=== PATIENT | female | born 1935 | race Caucasian/White ===

== ENCOUNTER 2018-09-14 21:00 | Emergency (ER) | payer MEDICARE ==
[2018-09-14 21:30] VITALS: BP 196/112
[2018-09-14] MEDS ORDERED: diazePAM INJ 5 MG/ML SYRINGE IM STA (22:40)
[2018-09-14] MEDS ORDERED: BUPIVACAINE 0.5%-EPI 1:200000 PF 10 ML VIAL SUBQ STA (22:41)
--- NOTE | 2018-09-14 22:43 | ED Physician Documentation ---
PD HPI BACK PAIN - Stated complaint Stated Complaint: BACK SPASAMS - Chief complaint Chief Complaint: Back Pain - History obtained from History obtained from: Patient - History of Present Illness Timing - onset: Today Timing - duration: Hours (several) Pain level max: 8 Pain level now: 8 Location: Mid, Left Quality: Pain, Spasm Associated symptoms: Other (no hx of IVDA or spinal injections). No: Fever, Weakness, Numbness, Incontinent of urine, Unable to urinate, Hematuria, Incontinent of stool Improves with: Position (lifting her left leg up to stretch) Worsened by: Movement Contributing factors: Other (unknown but has piror history of same symptoms) Similar symptoms before: Treatment (with a shot of something in the ED) Recently seen: Emergency Dept, Other (a few weeks ago for the same) Review of Systems Ten Systems: 10 systems reviewed and negative Constitutional: denies: Fever, Chills, Myalgias GI: denies: Abdominal Pain : denies: Dysuria, Incontinent, Hematuria Skin: denies: Rash, Lesions Musculoskeletal: reports: Back pain. 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 HEENT: Cataracts - Present Medications Home Medications: Ambulatory Orders Medication Instructions Recorded Confirmed RX: Hydrochlorothiazide 25 mg PO DAILY 01/05/13 03/10/15 RX: Potassium 99 mg PO DAILY 01/05/13 03/10/15 Calcium Carbonate [Calcium] 600 mg PO DAILY 03/10/15 03/10/15 Cholecalciferol (Vitamin D3) 1,000 unit PO DAILY 03/10/15 03/10/15 [Vitamin D3] Methocarbamol [Robaxin] 500 mg PO Q6H PRN #20 tablet 03/10/15 RX: diazePAM [Diazepam] 5 mg PO PRN 03/10/15 03/10/15 oxyCODONE/ACET 5/325 [Percocet 5 1 each PO Q4-6H PRN 03/10/15 03/10/15 mg/325 mg] oxyCODONE/ACET 5/325 [Percocet 5 1 each PO Q4-6H PRN #20 tablet 03/10/15 mg/325 mg] - Allergies Allergies/Adverse Reactions: Allergies Allergy/AdvReac Type Severity Reaction Status Date / Time No Known Drug Allergies Allergy Verified 09/14/18 21:07 - Social History Does the pt smoke?: No Smoking Status: Never smoker Does the pt drink ETOH?: Yes Does the pt have substance abuse?: No - Immunizations Immunizations are current?: Yes PD ED PE NORMAL - Vitals Vital signs reviewed: Yes - General General: Alert and oriented X 3, No acute distress - HEENT HEENT: Atraumatic - Neck Neck: Supple, no meningeal sign - Cardiac Cardiac: RRR, No murmur, No gallop, No rub - Respiratory Respiratory: No respiratory distress - Abdomen Abdomen: Soft, Non tender, Non distended - Female Female : Deferred - Rectal Rectal: Deferred - Back Back: No CVA TTP, Other (left mid paraspinal muscle tenderness with deep palpation) - Derm Derm: Normal color, Warm and dry, No rash - Extremities Extremities: No deformity, No tenderness to palpate, Normal ROM s pain. No: No edema, No calf tenderness / cord - Neuro Neuro: Alert and oriented X 3 Eye Opening: Spontaneous Motor: Obeys Commands Verbal: Oriented GCS Score: 15 - Psych Psych: Normal mood, Normal affect Results - Vitals Vitals: Vital Signs - 24 hr 09/14/18 09/14/18 09/14/18 21:04 21:30 23:51 Temperature 36.0 C L Heart Rate 87 86 Respiratory 20 17 17 Rate Blood Pressure 224/105 H 196/112 H O2 Saturation 95 98 Oxygen O2 Source Room air Procedures - General procedure General procedure: Right mid paraspinal trigger point injection performed with 0.5% marcaine with epi, cleansed area with chloraprep. No complications. PD MEDICAL DECISION MAKING - ED course Complexity details: reviewed old records, re-evaluated patient, considered differential, d/w patient ED course: 82 y/o F with hx of mid back pain for weeks, multiple ED visits, c/o spasming in mid back, atraumatic and paraspinal tenderness present in mid back. No red flags for back pain as in documentation.Given analgesics and trigger pt injection. Pt to f/u as needed. Departure - Departure Disposition: 01 Home, Self Care Clinical Impression: Back spasm Condition: Good Record reviewed to determine appropriate education?: Yes Instructions: ED Low Back Pain Injury Follow-Up: your,doctor [Other] - As Needed Comments: Return to the ED if you develop fever, weakness, or inability to walk Discharge Date/Time: 09/14/18 23:52
== END 2018-09-14 23:52 | disposition home or self-care (01) ==
LOC: ED 21:00
DX: M62.830 Muscle spasm of back (principal); M54.9 Dorsalgia, unspecified; I10 Essential (primary) hypertension
CPT/HCPCS: 20552; 96372; 99282; 99283

== ENCOUNTER 2018-09-15 05:55 | Emergency (ER) | payer MEDICARE ==
[2018-09-15] MEDS ORDERED: LIDOCAINE PATCH 5% TOP STA (06:21)
[2018-09-15] MEDS ORDERED: KETAMINE 500 MG/10 ML VIAL IVP STA (06:22)
[2018-09-15] MEDS ORDERED: LORazepam 2 MG/ML VIAL IVP STA (06:34)
[2018-09-15 06:40] LABS: BASOPHILS # (AUTO) 0.1 10^3/uL (0.0-0.1); BASOPHILS % (AUTO) 0.9 %; EOSINOPHILS # (AUTO) 0.2 10^3/uL (0.0-0.7); EOSINOPHILS % (AUTO) 2.6 %; HGB - HEMOGLOBIN 15.1 g/dL (12.0-16.0); LYMPHOCYTES # (AUTO) 1.7 10^3/uL (1.5-3.5); LYMPHOCYTES % (AUTO) 18.4 %; MEAN CORPUSCULAR HEMOGLOBIN 31.4 pg (27.0-31.0); MEAN CORPUSCULAR HGB CONC 33.8 g/dL (32.0-36.0); MEAN CORPUSCULAR VOLUME 92.9 fL (81.0-99.0); MEAN PLATELET VOLUME 7.6 fL (7.9-10.8); MONOCYTES # (AUTO) 0.8 10^3/uL (0.0-1.0); MONOCYTES % (AUTO) 8.8 %; NEUTROPHILS # (AUTO) 6.5 10^3/uL (1.5-6.6); NEUTROPHILS % (AUTO) 69.3 %; PLT - PLATELET COUNT 249 10^3/uL (130-450); RED CELL DISTRIBUTION WIDTH 13.5 % (12.0-15.0); WHITE BLOOD COUNT 9.3 x10^3/uL (4.8-10.8)
[2018-09-15] MEDS ORDERED: LORazepam 2 MG/ML VIAL ONE (06:40)
[2018-09-15 06:42] LABS: CREATININE 0.6 mg/dL (0.4-1.0)
[2018-09-15] MEDS ORDERED: IOVERSOL 320 100 ML VIAL IVP ONE ×2 (06:42→07:36)
--- NOTE | 2018-09-15 06:42 | ED Physician Documentation ---
PD HPI BACK PAIN - Stated complaint Stated Complaint: BK PX - Chief complaint Chief Complaint: Back Pain - History obtained from History obtained from: Patient - History of Present Illness Timing - onset: How many days ago (3) Timing - duration: Days (1) Timing - details: Gradual onset, Still present Location: Mid, Left Quality: Spasm Associated symptoms: No: Fever, Weakness, Numbness, Incontinent of urine, Unable to urinate, Hematuria, Incontinent of stool Improves with: Nothing Worsened by: Palpation Contributing factors: No: Anticoagulated, Cancer, IVDA Similar symptoms before: No diagnosis, Other (states she has had this once or twice before) Recently seen: Emergency Dept, Other (tonight for the same symptoms, returns because still having pain after valium and analgesics here. Requesting narcotics) Review of Systems Ten Systems: 10 systems reviewed and negative Constitutional: denies: Fever, Chills GI: denies: Abdominal Pain, Abdominal Swelling, Nausea, Vomiting : denies: Dysuria, Frequency, Hesitancy, Incontinent, Hematuria Skin: denies: Rash Musculoskeletal: reports: Back pain. 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 HEENT: Cataracts - Present Medications Home Medications: Ambulatory Orders Medication Instructions Recorded Confirmed RX: Hydrochlorothiazide 25 mg PO DAILY 01/05/13 03/10/15 RX: Potassium 99 mg PO DAILY 01/05/13 03/10/15 Calcium Carbonate [Calcium] 600 mg PO DAILY 03/10/15 03/10/15 Cholecalciferol (Vitamin D3) 1,000 unit PO DAILY 03/10/15 03/10/15 [Vitamin D3] Methocarbamol [Robaxin] 500 mg PO Q6H PRN #20 tablet 03/10/15 RX: diazePAM [Diazepam] 5 mg PO PRN 03/10/15 03/10/15 oxyCODONE/ACET 5/325 [Percocet 5 1 each PO Q4-6H PRN 03/10/15 03/10/15 mg/325 mg] oxyCODONE/ACET 5/325 [Percocet 5 1 each PO Q4-6H PRN #20 tablet 03/10/15 mg/325 mg] - Allergies Allergies/Adverse Reactions: Allergies Allergy/AdvReac Type Severity Reaction Status Date / Time No Known Drug Allergies Allergy Verified 09/14/18 21:07 - Social History Does the pt smoke?: No Smoking Status: Never smoker Does the pt drink ETOH?: Yes Does the pt have substance abuse?: No - Immunizations Immunizations are current?: Yes - POLST Patient has POLST: No PD ED PE NORMAL - Vitals Vital signs reviewed: Yes - General General: Alert and oriented X 3 - HEENT HEENT: Atraumatic - Neck Neck: Supple, no meningeal sign - Cardiac Cardiac: RRR - Respiratory Respiratory: No respiratory distress - Abdomen Abdomen: Soft, Non tender, Non distended - Female Female : Deferred - Rectal Rectal: Deferred - Back Back: No spinal TTP, Other (left paraspinal mid back tenderness to palpation, pinpoint) - Neuro Neuro: Alert and oriented X 3, No motor deficit, No sensory deficit, Other (normal gait) Eye Opening: Spontaneous Motor: Obeys Commands Verbal: Oriented GCS Score: 15 - Psych Psych: Normal mood, Normal affect - Free text exam Free text exam: Patient ambulating, no weakness or numbness Results - Vitals Vitals: Vital Signs - 24 hr 09/15/18 09/15/18 09/15/18 05:59 06:33 06:39 Temperature 36.4 C L Heart Rate 76 91 75 Respiratory 17 28 H 20 Rate Blood Pressure 228/112 H 236/110 H O2 Saturation 96 100 100 Oxygen O2 Source Nasal cannula Oxygen Flow Rate 4 - Labs Labs: Laboratory Tests 09/15/18 09/15/18 06:30 06:30 WBC 9.3 RBC 4.80 Hgb 15.1 Hct 44.6 MCV 92.9 MCH 31.4 H MCHC 33.8 RDW 13.5 Plt Count 249 MPV 7.6 L Neut # (Auto) 6.5 Lymph # (Auto) 1.7 Holmes # (Auto) 0.8 Eos # (Auto) 0.2 Baso # (Auto) 0.1 Absolute Nucleated RBC 0.00 Nucleated RBC % 0.0 Sodium 139 Potassium 3.5 Chloride 101 Carbon Dioxide 25 Anion Gap 13.0 BUN 16 Creatinine 0.6 Estimated GFR (MDRD) 96 Glucose 110 H Calcium 10.0 PD MEDICAL DECISION MAKING - ED course ED course: 82 y/o F with return visit for left mid back pain. Normal exam except for HTN which pt does have chronically and I suspect is worse due to acute pain. Given however HTN and intractable pain, will obtain labs, Urine and CT imaging to evaluate for other etiology of her pain - AAA, kidney stone etc. She was given an analgesics dose of ketamine, ativan for some anxiety after ketamine and a lidoderm patch. On reevaluation her pain is now a 5/10 from a 10/10 on arrival but she is still hypertensive. CT result pending at time of signout.
[2018-09-15 07:55] LABS: BILIRUBIN,URINE NEGATIVE (NEGATIVE); GLUCOSE, URINE (UA) NEGATIVE (NEGATIVE); KETONES,URINE (UA) NEGATIVE (NEGATIVE); LEUKOCYTE ESTERASE, URINE NEGATIVE (NEGATIVE); NITRITE,URINE NEGATIVE (NEGATIVE); OCCULT BLOOD,URINE NEGATIVE (NEGATIVE); PROTEIN,URINE NEGATIVE (NEGATIVE); UROBILINOGEN,URINE 0.2 (NORMAL) E.U./dL (NORMAL)
--- NOTE | 2018-09-15 07:58 | CT Report ---
Reason: assess for AAA, kidney stone, L f mid back pain Procedure Date: 09/15/2018 Accession Number: [id number] / [id number] Procedure: CT - Abdomen/Pelvis W CPT Code: FULL RESULT: EXAM: CT ABDOMEN AND PELVIS EXAM DATE: 09/15/2018 07:18 AM. CLINICAL HISTORY: Left mid back pain; study is performed to evaluate for abdominal aortic aneurysm and nephrolithiasis. COMPARISONS: None. TECHNIQUE: Routine helical CT imaging was performed through the abdomen and pelvis. IV contrast: 100 mL of Optiray 320. Enteric contrast: No. Reconstructions: Coronal and sagittal. In accordance with CT protocol optimization, one or more of the following dose reduction techniques were utilized for this exam: automated exposure control, adjustment of mA and/or KV based on patient size, or use of iterative reconstructive technique. FINDINGS: Lung Bases: Passive atelectasis in the dependent portions of the lung bases. Cardiomegaly. Liver: Normal. No masses. Gallbladder/Bile Ducts: The bladder is unremarkable. There is fusiform dilation of the common hepatic duct and common bile duct measuring up to 2 cm in diameter. The pancreatic duct is dilated as well, measuring up to 6.5 mm in diameter. Spleen: Normal. Pancreas: Pancreas otherwise unremarkable for age. Adrenal Glands: Normal. Kidneys: Upper pole left renal cortical cyst measuring 13 mm in diameter. Bilateral extrarenal pelves without hydronephrosis. Tiny renal cortical scars in the interpolar region of the right kidney, the largest measuring 6 mm in diameter. Peritoneal Cavity/Bowel: Small hiatal hernia. An ascending and sigmoid colon diverticulosis without diverticulitis. No free fluid, free air or adenopathy. No masses or acute inflammatory process. I do not identify the appendix. Pelvic Organs: Suboptimal evaluation of the pelvis secondary to streak artifacts from the metallic hardware in the hips. Vasculature: Calcified atherosclerotic plaques in the aorta, without aneurysmal dilation. Bones: Status post bilateral total hip arthroplasties. Decreased bone mineralization. Multilevel thoracic and lumbar spondylosis, with bilateral facet arthrosis at L5-S1. Other: None. IMPRESSION: 1. No nephrolithiasis, hydronephrosis or ureterolithiasis. 2. Obscuration of the pelvic structures secondary to streak artifacts from the metallic hardware in the hips. 3. Small hiatal hernia. 4. Fusiform dilation of the common hepatic duct and common bile duct, with dilation of the pancreatic duct. No intra-hepatic biliary dilation. On a nonemergent basis, MRI of the abdomen without and with IV contrast with a pancreatic protocol and MRCP are recommended for further evaluation. 5. Normal caliber aorta. 6. Bilateral renal cortical cysts. RADIA
[2018-09-15 07:59] LABS: CLARITY,URINE CLEAR (CLEAR)
[2018-09-15] MEDS ORDERED: MORPHINE 10 MG/ML VIAL IVP STA (08:24)
[2018-09-15] MEDS ORDERED: KETOROLAC 15 MG/ML VIAL IVP STA (08:24)
[2018-09-15] MEDS ORDERED: ONDANSETRON 4 MG/2 ML VIAL IVP STA (09:27)
--- NOTE | 2018-09-15 10:59 | ED Physician Documentation ---
ED Addendum - Addendum Addendum: 09/15/18 10:57 I am assuming care of the patient from the prior ER physician. The patient had been seen for episodic back pain without apparent injury. She had appropriate testing with a urine and x-ray CT scan. She had had a stepwise approach to the pain with local treatments with lidocaine patch and trigger point injection as well as nonnarcotic medications. She has had some improvement but is still having pain localized. She does not have a Jazlyn report. She states she has had episodic similar pain in the past with a prior visit to her ear to to the ER about 4 years ago and her primary care about 2 years ago. At this point I feel it appropriate to supplement the prior medications with some dosing of pain medication and muscle relaxant given an acute treatment for acute episodic back pain with the prior episodes being 2 and 4 years ago.
[2018-09-15 11:21] VITALS: BP 160/78
== END 2018-09-15 11:20 | disposition home or self-care (01) ==
LOC: ED 05:55
DX: M62.830 Muscle spasm of back (principal); M54.9 Dorsalgia, unspecified; I10 Essential (primary) hypertension; F41.9 Anxiety disorder, unspecified
CPT/HCPCS: 36415; 74177; 80048; 81003; 85025; 96374; 96375; 99282; 99284; A9270; J2060; Q9967; 81001; 87086

== ENCOUNTER 2021-06-22 17:32 | Outpatient (CLI) | payer MEDICARE | END 2021-06-22 17:33 | disposition EMS.NT | LOC: EMS 17:32 | DX: Z03.89 Encounter for observation for other suspected diseases and conditions ruled out (principal) ==